=== PATIENT | male | born 1985 | race Caucasian/White ===

== ENCOUNTER 2018-06-05 22:07 | Emergency (ER) | payer OTHER ==
[~2018-06-05] VITALS: Ht 180.3 cm; Wt 86.8 kg
[2018-06-05] MEDS ORDERED: iohexol 300mg/ml 100ml inj. ONE (22:53)
[2018-06-05 22:55] LABS: BASOPHILS % (AUTO) 0.2 % (0-1); EOSINOPHILS % (AUTO) 0.3 % (0-6); HEMATOCRIT 49.1 % (42.0-52.0); HEMOGLOBIN 16.8 g/dl (14.0-17.9); LYMPHOCYTES # (AUTO) 0.5 X10'3 (1.1-4.8); LYMPHOCYTES % (AUTO) 8.6 % (21-51); MEAN CORPUSCULAR HEMOGLOBIN 31.7 PG (27.0-31.0); MEAN CORPUSCULAR HGB CONC 34.1 % (33.0-36.5); MEAN PLATELET VOLUME 8.6 FL (7.4-10.4); MONOCYTES # (AUTO) 0.2 X10'3 (0-0.9); MONOCYTES % (AUTO) 3.5 % (2-12); NEUTROPHILS # (AUTO) 5.2 X10'3 (1.8-7.7); NEUTROPHILS % (AUTO) 87.4 % (42-75); PLATELET COUNT 212 X10'3 (140-440); RED BLOOD COUNT 5.29 X10'6 (4.70-6.10); RED CELL DISTRIBUTION WIDTH 12.7 % (11.5-14.5)
[2018-06-05 23:10] LABS: ALANINE AMINOTRANSFERASE 41 U/L (12-78); ALBUMIN 3.5 G/DL (3.4-5.0); ALKALINE PHOSPHATASE 98 IU/L (46-116); ANION GAP 11 (8-16); ASPARTATE AMINO TRANSFERASE 19 U/L (10-37); BILIRUBIN,TOTAL 0.6 MG/DL (0.1-1.0); BLOOD UREA NITROGEN 9 MG/DL (7-18); BUN/CREATININE RATIO 9.3 (5.4-32.0); CALCIUM 8.8 MG/DL (8.5-10.1); CHLORIDE 103 MMOL/L (99-107); CREATININE 0.97 MG/DL (0.60-1.10); GLUCOSE 105 MG/DL (70-104); POTASSIUM 4.2 MMOL/L (3.5-5.1); SODIUM 139 MMOL/L (135-145); TOTAL CARBON DIOXIDE 25.2 MMOL/L (24-32); TOTAL PROTEIN 7.1 G/DL (6.4-8.2); eGFR 89 ML/MIN
[2018-06-05 23:16] LABS: CLARITY,URINE CLEAR (Clear); COLOR,URINE YELLOW (Yellow); GLUCOSE, URINE NEGATIVE (Neg); KETONES,URINE NEGATIVE (Neg); LEUKOCYTE ESTERASE ,URINE NEGATIVE (Neg); NITRITES, URINE NEGATIVE (Neg); OCCULT BLOOD,URINE NEGATIVE (Neg); PROTEIN,URINE NEGATIVE (Neg); UROBILINOGEN,URINE 0.2 E.U/dL (0.2-1.0)
[2018-06-05 23:17] LABS: UA COLLECTION TYPE CLN CATCH MIDSTREAM
[2018-06-05 23:18] LABS: PARTIAL THROMBOPLASTIN TIME 28 SECONDS (22-32); PROTHROMBIN TIME 10.1 SECONDS (9.0-12.0)
[2018-06-05] MEDS ORDERED: ondansetron/PF 4mg/2ml inj IV ONE (23:50)
[2018-06-05] MEDS ORDERED: morphine 4 MG/ML inj SYRINge IV ONE (23:50)
[2018-06-06 00:32] VITALS: BP 134/68
[2018-06-06] MEDS ORDERED: normal saline 1000ml 1,000 ML IV ONE (00:35)
== END 2018-06-06 01:28 | disposition home or self-care (01) ==
LOC: ER 22:08
DX: R19.7 Diarrhea, unspecified (principal); R11.0 Nausea; R10.12 Left upper quadrant pain; R50.9 Fever, unspecified; G89.29 Other chronic pain; Z72.0 Tobacco use
CPT/HCPCS: 36415; 71045; 74177; 80053; 81003; 83605; 84145; 85025; 85610; 85730; 87040; 93005; 96361; 96374; 96375; 99285; J2270; J2405; Q9967

== ENCOUNTER 2025-01-18 04:11 | Emergency (ER) | payer OTHER, MEDICAID ==
[~2025-01-18] VITALS: Ht 177.8 cm; Wt 93.2 kg
--- NOTE | 2025-01-18 04:25 | ELECTROCARDIOGRAPH REPORT ---
[facility] Test Date: 2025-01-18 Test Time: 04:21:17 Pat Name: WELLINGTON SANTOS Department: EMERGENCY ROOM [id number] Room: Gender: M Technical Writer: : 1985 Requested By: EVA LYNN Order Number: [id number] Reading MD: Dr. Wade Lima Measurements Intervals [place] Rate: 82 P: 68 PA: 130 QRS: 46 QRSD: 85 T: 43 QT: 367 QTc: 429 Interpretive Statements Sinus rhythm Electronically Signed On 01-20-2025 6:35:[address] Wade Lima Please click the below link to view image of tracing.
[2025-01-18 05:07] LABS: HEMATOCRIT 43.3 % (42.0-52.0); HEMOGLOBIN 14.8 g/dl (14.0-17.9); LYMPHOCYTES % (AUTO) 30.6 % (21-51); MEAN CORPUSCULAR HEMOGLOBIN 31.3 PG (27.0-31.0); MEAN CORPUSCULAR HGB CONC 34.2 g/dL (33.0-36.5); MEAN CORPUSCULAR VOLUME 91.4 FL (78-98); MEAN PLATELET VOLUME 8.9 FL (7.4-10.4); NEUTROPHILS % (AUTO) 57.2 % (42-75); PLATELET COUNT 257 X10'3 (140-440); RED BLOOD COUNT 4.74 X10'6 (4.70-6.10); RED CELL DISTRIBUTION WIDTH 13.5 % (11.5-14.5); WHITE BLOOD COUNT 5.9 X10'3 (4.5-11.0)
[2025-01-18 05:08] LABS: BASOPHILS # (AUTO) 0.1 X10'3 (0-0.2); BASOPHILS % (AUTO) 1.2 % (0-1); EOSINOPHILS # (AUTO) 0.2 X10'3 (0-0.9); LYMPHOCYTES # (AUTO) 1.8 X10'3 (1.1-4.8); MONOCYTES # (AUTO) 0.5 X10'3 (0-0.9); NEUTROPHILS # (AUTO) 3.4 X10'3 (1.8-7.7)
--- NOTE | 2025-01-18 05:12 | RADIOLOGY REPORT ---
CHEST RADIOGRAPH Indication: CP Technique: Single frontal view of the chest was obtained Comparison: None FINDINGS: Lines and Tubes: None Lungs: No focal consolidation. Pleura: No effusion. No pneumothorax. Cardiomediastinal contours: Unremarkable Bones: No acute osseous abnormality. IMPRESSION: 1. No acute cardiopulmonary disease.
[2025-01-18 05:21] LABS: ANION GAP 10 (8-16); BLOOD UREA NITROGEN 19 MG/DL (7-18); BUN/CREATININE RATIO 13.1 (10.0-20.0); CALCIUM 9.5 MG/DL (8.5-10.1); CHLORIDE 103 MMOL/L (99-107); CREATININE 1.45 MG/DL (0.60-1.10); GLUCOSE 107 MG/DL (70-104); POTASSIUM 3.9 MMOL/L (3.5-5.1); PRO BRAIN NATRIURETIC PEPTIDE < 30 PG/ML (0-125); SODIUM 139 MMOL/L (135-145); TOTAL CARBON DIOXIDE 25.8 MMOL/L (24-32); eCRCL 70 ML/MIN; eGFR 54 ML/MIN
[2025-01-18] MEDS ORDERED: HYDR-3965 PO (05:56)
--- NOTE | 2025-01-18 05:56 | Physician Documentation ---
History of Present Illness ~ Chief Complaint: Chest Wall Pain Stated Complaint: UPPER ABDOMINAL PAIN Time Seen by MD: 05:43 Primary Medical Doctor: dmitri [facility] Patient presents to the emergency room with back pain and chest pain that has been going on for a proximally two months. He reports that after going to [facility] he has been suffering from this pain ever since. He has a long history of chronic pain secondary to injury that occurred a proximally 20 years ago. He was on gabapentin in his using ibuprofen and Tylenol as well as muscle relaxers. He is awaiting for pain referrals and working with his doctor. He is waiting for an MRI to be performed which he had previously had an MRI for the same injury a proximally three years ago but was told that he needs a new one based upon policy. Medication Reconciliation Allergies: Coded Allergies: No Known Allergies (Unverified , 06/05/18) Scheduled PRN Hydrocodone Bit/Acetaminophen 5/325 MG ([place] 5/325 MG), 1 TAB PO Q4-6 hours PRN for pain Past Medical History Past Medical History: Chronic Pain Past Surgical History: no surgical history Drug Use: none Lives In: Home Review of Systems ROS All review of systems negative except as per HPI Physical Exam Vital Signs: Temperature: 97.6, Source: Oral, Heart Rate: 81, Respiratory Rate: 16, BP: 156/112, Pulse Oximetry: 99, Weight: 93.180 Oxygen Flow Rate: 0 Physical Exam General: Patient is awake, alert, oriented x4 in no acute distress and well appearing.~ Head: Normocephalic and atraumatic. Eyes: Conjunctival normal. EOMI. PERRL. ENT: Mucous membranes moist. Neck: Supple, trachea is midline. Chest: Clear to auscultation bilaterally without rales, rhonchi, or wheezes. There is no accessory muscle use or retractions. Mild tenderness to palpation to central sternum Cardiac: RRR without murmurs, gallops, or rubs. Back: Tenderness to palpation to bilateral paraspinal musculature at the T11 area. No step-offs or rashes Progress Results/Orders Results/Orders Orders - JOHANN RAO MD Chest,Single View (01/18/25 04:52) Monitor (01/18/25 04:20) Saline Lock (01/18/25 04:20) Oxygen (01/18/25 04:20) Hs Troponin I W Calculations (01/18/25 06:20) Hs Troponin I W Calculations (01/18/25 07:20) Completed Orders - JOHANN RAO MD Chest,Single View (01/18/25 04:52) Cbc/Diff (01/18/25 04:20) BMP (01/18/25 04:20) PBNP (01/18/25 04:20) Electrocardiogram (01/18/25 04:20) Hs Troponin I W Calculations (01/18/25 04:20) Ketorolac Trometh 15mg/Ml Vial (Toradol (01/18/25 06:00) Vital Signs 01/18/25 04:16 Temp 97.6 Pulse 81 Resp 16 B/P (MAP) 156/112 Pulse Ox 99 O2 Flow Rate 0 Laboratory Tests Test 01/18/25 04:34 White Blood Count 5.9 Red Blood Count 4.74 Hemoglobin 14.8 Hematocrit 43.3 Mean Corpuscular Volume 91.4 Mean Corpuscular Hemoglobin 31.3 H Mean Corpuscular Hemoglobin Concent 34.2 Red Cell Distribution Width 13.5 Platelet Count 257 Mean Platelet Volume 8.9 Neutrophils (%) (Auto) 57.2 Lymphocytes (%) (Auto) 30.6 Monocytes (%) (Auto) 8.0 Eosinophils (%) (Auto) 3.0 Basophils (%) (Auto) 1.2 H Neutrophils # (Auto) 3.4 Lymphocytes # (Auto) 1.8 Monocytes # (Auto) 0.5 Eosinophils # (Auto) 0.2 Basophils # (Auto) 0.1 CBC Comment Sodium Level 139 Potassium Level 3.9 Chloride Level 103 Carbon Dioxide Level 25.8 Anion Gap 10 Blood Urea Nitrogen 19 H Creatinine 1.45 H Estimated GFR/1.73 m2 54 BUN/Creatinine Ratio 13.1 Glucose Level 107 H Calcium Level 9.5 Troponin I High Sensitivity 10 Pro-B-Type Natriuretic Peptide < 30 Albumin 4.0 Chemistry Comments EKG/XRAY/CT/US/VASC/MRI EKG : Additional Comment EKG interpreted by myself shows time of 0421, rate 82, sinus rhythm, normal axis, no ST changes Medical Decision Making Findings Patient presents to the emergency room with chest and back pain as per HPI. Differentials include but are not limited to radiculopathy, musculoskeletal pain, aortic pathology, ACS therefore emergent labs and imaging indicated. Chest x-ray is reassuring and given tenderness to palpation I do not feel patient requires CT scan. We will give him small amount of pain medication with instructions to follow up with his doctor patient's chest pain is atypical with a heart score of one Departure Disposition: HOME / SELF CARE / HOMELESS Impression: Primary Impression: Chest pain Condition: Stable Discharge Instructions: Costochondritis Referrals: NO PRIMARY CARE PROVIDER (PCP) Prescriptions Hydrocodone Bit/Acetaminophen 5/325 MG ([place] 5/325 MG) 5 Mg/325 Mg Tablet 1 TAB PO Q4-6 hours PRN for pain, #20 TAB Prov: JOHANN RAO MD 01/18/25 Education Educated: Patient Educated regarding: need for follow up Signature Scribe Signature: No scribe Attestation: The note accurately reflects work and decisions made by me.Johann Rao MD 01/18/25 05:57 JOHANN RAO MD Jan 18, 2025 05:56
[2025-01-18] MEDS ORDERED: ketorolac trometh 15mg/ml vial 15 MG/ML ML IM ONE (06:00)
[2025-01-18] MEDS: ketorolac trometh 30MG/ML vial 30 MG/ML VIAL IM ONE (06:15)
[2025-01-18 06:21] VITALS: BP 124/94; PULSE 76; RESP 14; TEMP 97.6; O2SAT 4
== END 2025-01-18 06:27 | disposition home or self-care (01) ==
LOC: ER 04:11
DX: R07.9 Chest pain, unspecified (principal); M54.9 Dorsalgia, unspecified
CPT/HCPCS: 36415; 71045; 80048; 83880; 84484; 85025; 93005; 96372; 99285; J1885